=== PATIENT | male | born 1970 | race Caucasian/White ===

== ENCOUNTER → 2018-02-26 | Outpatient (CLI) | payer BC ==
[2012-05-11 18:43] VITALS: BP 137/82
== END ==
LOC: CARDREHAB 10:36 → CARDLAB 12:15
DX: R07.9 Chest pain, unspecified (principal); Z82.49 Family history of ischemic heart disease and other diseases of the circulatory system
CPT/HCPCS: A9500

== ENCOUNTER → 2018-10-20 | Outpatient (CLI) | payer BC ==
[2012-05-11 18:43] VITALS: BP 137/82
== END ==
LOC: RAD 08:39
DX: R05 Cough (principal)

== ENCOUNTER → 2019-10-10 | Outpatient (CLI) | payer BC ==
[2012-05-11 18:43] VITALS: BP 137/82
== END ==
LOC: RAD 16:52
DX: M17.11 Unilateral primary osteoarthritis, right knee (principal); M25.461 Effusion, right knee

== ENCOUNTER → 2019-10-13 | Outpatient (CLI) | payer BC ==
[2012-05-11 18:43] VITALS: BP 137/82
== END ==
LOC: RAD 10-12 07:45
DX: M23.251 Derangement of posterior horn of lateral meniscus due to old tear or injury, right knee (principal); M94.261 Chondromalacia, right knee

== ENCOUNTER → 2020-11-12 | Outpatient (CLI) | payer BC ==
[2012-05-11 18:43] VITALS: BP 137/82
== END ==
LOC: RAD 16:34
DX: R09.81 Nasal congestion (principal)

== ENCOUNTER → 2020-11-13 | Outpatient (CLI) | payer BC ==
[2012-05-11 18:43] VITALS: BP 137/82
== END ==
LOC: RAD 08:09
DX: U07.1 COVID-19 (principal); K76.0 Fatty (change of) liver, not elsewhere classified; B94.8 Sequelae of other specified infectious and parasitic diseases
CPT/HCPCS: Q9967

== ENCOUNTER → 2020-11-13 | Outpatient (REF) ==
[2012-05-11 18:43] VITALS: BP 137/82
== END ==
LOC: LAB 08:06
DX: R53.83 Other fatigue (principal); R05 Cough